=== PATIENT | male | born 1950 | race Caucasian/White ===

== ENCOUNTER 2018-09-16 16:31 | Emergency (ER) | payer MEDICARE, OTHER, SELFPAY ==
[2018-09-16 16:38] VITALS: BP 178/79; PULSE 73; RESP 14; TEMP 36.3; O2SAT 96
--- NOTE | 2018-09-16 17:09 | DI.RAD.S_ITS ---
PROCEDURE: XR WRIST LT MIN 3V INDICATIONS: non traumatic pain, after treatment. TECHNIQUE: 4 views of the wrist were acquired. COMPARISON: None. FINDINGS: Bones: Small 2 mm in diameter ossification noted dorsal to the wrist in the lateral view which may represent an accessory ossicle versus old triquetral injury. No acute fractures or dislocations. No suspicious bony lesions. Scaphoid view: Scaphoid is intact Soft tissues: No suspicious soft tissue calcifications. IMPRESSION: No acute fracture. No acute osseous lesion. If symptoms and/or clinical suspicion for pathology persists, further assessment with repeat radiographs (7-10 days) or advanced imaging (e.g. CT, MRI or bone scan) may be helpful. Dictated by: Elda Bey MD, PhD on 09/16/2018 at 16:26 Approved by: Elda Bey MD, PhD on 09/16/2018 at 16:28
--- NOTE | 2018-09-16 18:05 | ED.EXTPRO ---
HPI - Extremity Problem General Chief complaint: Extremity Problem,Nontraumatic Stated complaint: left wrist pain x4 days Time Seen by Provider: 09/16/18 17:10 Source: patient Mode of arrival: ambulatory Limitations: no limitations History of Present Illness HPI Narrative: Patient is a 67-year-old male who presents with left wrist pain. He does not remember injuring it on but he started noticing swelling. 4 days ago he was seen at the walk-in clinic at that time he had redness and streaking. He was started on Keflex. He says the redness has improved significantly he still has some swelling but overall it is better. He now feels his tendons move whenever he moves his hand. He wanted to make sure was not broken. He denies any fever or chills no numbness or tingling in his fingers. He is able to move fingers and wrist full range of motion. MD Complaint: extremity pain Related Data Home Medications Medication Instructions Recorded Confirmed cephalexin 500 mg PO TID 09/16/18 09/16/18 clobetasol 1 applic TOPICAL DIRECTED 09/16/18 09/16/18 lisinopril 20 mg PO DAILY 09/16/18 Allergies Allergy/AdvReac Type Severity Reaction Status Date / Time No Known Drug Allergies Allergy Verified 09/16/18 16:37 Review of Systems Review of Systems GENERAL: Denies chills,fever HEENT: Denies throat pain RESPIRATORY: Denies dyspnea, cough, wheezing CARDIOVASCULAR: Denies chest pain, palpitations GASTROINTESTINAL: Denies nausea, vomiting MUSCULOSKELETAL: See HPI SKIN: See HPI NEUROLOGIC: Denies weakness, dizziness, headache, numbness 8 point review of systems is negative except for those stated above and HPI [facility] Medical History Healthy adult (Acute) Social History Smoking Status: Former smoker Exam Initial Vital Signs Initial Vital Signs: Vital Signs Temperature 97.3 F L 09/16/18 16:38 Pulse Rate 73 09/16/18 16:38 Respiratory Rate 14 09/16/18 16:38 Blood Pressure 178/79 H 09/16/18 16:38 Pulse Oximetry 96 09/16/18 16:38 GENERAL: Well-appearing, well-nourished and in no acute distress. CARDIOVASCULAR: peripheral pulses in tact, cap refill <2 sec RESPIRATORY: No respiratory distress, speaks in full sentences without difficulty EXTREMITIES: Left wrist 1 area of mild swelling no erythema full range of motion of fingers wrist and elbow neurovascularly intact NEUROLOGICAL: Cranial nerves II through XII grossly intact. Normal gait and speech. SKIN: No erythema no streaking no abscess Course Orders Ordered: ED Orders 09/16/18 17:09 XR wrist LT min 3V Stat Vital Signs - 8 hr 09/16/18 16:38 09/16/18 18:30 Temperature 97.3 F L Pulse Rate 73 68 Respiratory Rate 14 16 Blood Pressure 178/79 H Blood Pressure [Right Arm] 180/82 H Pulse Oximetry 96 99 MDM - Extremity (Nontraumatic) Imaging Data Left wrist: Radiologist's impression: [address] [address] XRay Report Signed Patient: Tanner Abrams CMR#: [id number] : 9Acct:[id number] Age/Sex: 67 / MDate of Service: 09/16/18 Loc: ED Accession Number: [id number] Procedure: XR wrist LT min 3V Ordering Provider: Ulises Thacker D.O. PROCEDURE: XR WRIST LT MIN 3V INDICATIONS: non traumatic pain, after treatment. TECHNIQUE: 4 views of the wrist were acquired. COMPARISON: None. FINDINGS: Bones: Small 2 mm in diameter ossification noted dorsal to the wrist in the lateral view which may represent an accessory ossicle versus old triquetral injury. No acute fractures or dislocations. No suspicious bony lesions. Scaphoid view: Scaphoid is intact Soft tissues: No suspicious soft tissue calcifications. IMPRESSION: No acute fracture. No acute osseous lesion. If symptoms and/or clinical suspicion for pathology persists, further assessment with repeat radiographs (7-10 days) or advanced imaging (e.g. CT, MRI or bone scan) may be helpful. Dictated by: Elda Bey MD, PhD on 09/16/2018 at 16:26 MDM Narrative Medical decision making narrative: Patient overall has had improvement since the start of antibiotics. He shows no sign of sepsis or septic joint. At this time recommend he finished his course of antibiotics and elevated arm. Discharge Plan Departure Patient Disposition: Home Clinical Impression: Cellulitis of arm, left Discharge Date/Time: 09/16/18 18:31 Interventions: ED Discharge Assessment Last Done: 09/16/18 18:31 Instructions: Cellulitis Activity Restrictions/Additional Instructions: *You have been diagnosed with cellulitis *What to do: Elevate arm above heart whenever possible this will help with swelling. X-ray was negative. Continue antibiotics and finished until gone *Continue to take medications as directed *Follow up with your primary care provider in 2-3 days *Return to ER if you should have increasing swelling, redness, inability to move fingers, increasing pain or any new, worsening or concerning symptoms Prescriptions: No Action lisinopril 20 mg tablet 20 mg PO DAILY RF: 0 clobetasol 0.05 % cream 1 applic Topical DIRECTED RF: 0 cephalexin 500 mg capsule 500 mg PO TID RF: 0 Referrals: Sudhir Diaz MD [Primary Care Provider] -
--- NOTE | 2018-09-16 18:20 | ED_ITS ---
HPI - Extremity Problem General Chief complaint: Extremity Problem,Nontraumatic Stated complaint: left wrist pain x4 days Time Seen by Provider: 09/16/18 17:10 Source: patient Mode of arrival: ambulatory Limitations: no limitations History of Present Illness HPI Narrative: Patient is a 67-year-old male who presents with left wrist pain. He does not remember injuring it on but he started noticing swelling. 4 days ago he was seen at the walk-in clinic at that time he had redness and streaking. He was started on Keflex. He says the redness has improved significantly he still has some swelling but overall it is better. He now feels his tendons move whenever he moves his hand. He wanted to make sure was not broken. He denies any fever or chills no numbness or tingling in his fingers. He is able to move fingers and wrist full range of motion. MD Complaint: extremity pain Related Data Home Medications Medication Instructions Recorded Confirmed cephalexin 500 mg PO TID 09/16/18 09/16/18 clobetasol 1 applic TOPICAL DIRECTED 09/16/18 09/16/18 lisinopril 20 mg PO DAILY 09/16/18 Allergies Allergy/AdvReac Type Severity Reaction Status Date / Time No Known Drug Allergies Allergy Verified 09/16/18 16:37 Review of Systems Review of Systems GENERAL: Denies chills,fever HEENT: Denies throat pain RESPIRATORY: Denies dyspnea, cough, wheezing CARDIOVASCULAR: Denies chest pain, palpitations GASTROINTESTINAL: Denies nausea, vomiting MUSCULOSKELETAL: See HPI SKIN: See HPI NEUROLOGIC: Denies weakness, dizziness, headache, numbness 8 point review of systems is negative except for those stated above and HPI [facility] Medical History Healthy adult (Acute) Social History Smoking Status: Former smoker Exam Initial Vital Signs Initial Vital Signs: Vital Signs Temperature 97.3 F L 09/16/18 16:38 Pulse Rate 73 09/16/18 16:38 Respiratory Rate 14 09/16/18 16:38 Blood Pressure 178/79 H 09/16/18 16:38 Pulse Oximetry 96 09/16/18 16:38 GENERAL: Well-appearing, well-nourished and in no acute distress. CARDIOVASCULAR: peripheral pulses in tact, cap refill <2 sec RESPIRATORY: No respiratory distress, speaks in full sentences without difficulty EXTREMITIES: Left wrist 1 area of mild swelling no erythema full range of motion of fingers wrist and elbow neurovascularly intact NEUROLOGICAL: Cranial nerves II through XII grossly intact. Normal gait and speech. SKIN: No erythema no streaking no abscess Course Orders Ordered: ED Orders 09/16/18 17:09 XR wrist LT min 3V Stat Vital Signs - 8 hr 09/16/18 16:38 09/16/18 18:30 Temperature 97.3 F L Pulse Rate 73 68 Respiratory Rate 14 16 Blood Pressure 178/79 H Blood Pressure [Right Arm] 180/82 H Pulse Oximetry 96 99 MDM - Extremity (Nontraumatic) Imaging Data Left wrist: Radiologist's impression: [address] [address] XRay Report Signed Patient: Tanner Abrams CMR#: [id number] : 9Acct:[id number] Age/Sex: 67 / MDate of Service: 09/16/18 Loc: ED Accession Number: [id number] Procedure: XR wrist LT min 3V Ordering Provider: Ulises Thacker D.O. PROCEDURE: XR WRIST LT MIN 3V INDICATIONS: non traumatic pain, after treatment. TECHNIQUE: 4 views of the wrist were acquired. COMPARISON: None. FINDINGS: Bones: Small 2 mm in diameter ossification noted dorsal to the wrist in the lateral view which may represent an accessory ossicle versus old triquetral injury. No acute fractures or dislocations. No suspicious bony lesions. Scaphoid view: Scaphoid is intact Soft tissues: No suspicious soft tissue calcifications. IMPRESSION: No acute fracture. No acute osseous lesion. If symptoms and/or clinical suspicion for pathology persists, further assessment with repeat radiographs (7- 10 days) or advanced imaging (e.g. CT, MRI or bone scan) may be helpful. Dictated by: Elda Bey MD, PhD on 09/16/2018 at 16:26 MDM Narrative Medical decision making narrative: Patient overall has had improvement since the start of antibiotics. He shows no sign of sepsis or septic joint. At this time recommend he finished his course of antibiotics and elevated arm. Discharge Plan Departure Patient Disposition: Home Clinical Impression: Cellulitis of arm, left Discharge Date/Time: 09/16/18 18:31 Interventions: ED Discharge Assessment Last Done: 09/16/18 18:31 Instructions: Cellulitis Activity Restrictions/Additional Instructions: *You have been diagnosed with cellulitis *What to do: Elevate arm above heart whenever possible this will help with swelling. X-ray was negative. Continue antibiotics and finished until gone *Continue to take medications as directed *Follow up with your primary care provider in 2-3 days *Return to ER if you should have increasing swelling, redness, inability to move fingers, increasing pain or any new, worsening or concerning symptoms Prescriptions: No Action lisinopril 20 mg tablet 20 mg PO DAILY RF: 0 clobetasol 0.05 % cream 1 applic Topical DIRECTED RF: 0 cephalexin 500 mg capsule 500 mg PO TID RF: 0 Referrals: Sudhir Diaz MD [Primary Care Provider] -
[2018-09-16 18:30] VITALS: BP 180/82; PULSE 68; RESP 16; O2SAT 99
== END 2018-09-16 18:31 | disposition home or self-care (01) ==
PROVIDERS: Emergency Provider Emergency Medicine; PCP Family Medicine
DX: L03.114 Cellulitis of left upper limb (principal)
CPT/HCPCS: 73110; 99282; 99283

== ENCOUNTER 2019-04-04 16:32 | Emergency (ER) | payer MEDICARE, OTHER, SELFPAY ==
[2019-04-04 16:40] VITALS: PULSE 89; RESP 16; O2SAT 99
[2019-04-04 16:47] VITALS: BP 146/68
--- NOTE | 2019-04-04 16:53 | DI.RAD.S_ITS ---
PROCEDURE: XR CHEST 1V INDICATIONS: chest pain TECHNIQUE: One view of the chest was acquired. COMPARISON: None. FINDINGS: Surgical changes and devices: None. Lungs and pleura: Lungs are clear. No pleural effusions or pneumothorax. Mediastinum: Mediastinal contours appear normal. Heart size is normal. Bones and chest wall: No suspicious bony lesions. Overlying soft tissues appear unremarkable. IMPRESSION: No acute process. Dictated by: Madonna Escalante M.D. on 04/04/2019 at 17:12 Approved by: Madonna Escalante M.D. on 04/04/2019 at 17:12
[2019-04-04 17:36] LABS: Add Manual Diff / Slide Review NO; Basophils Absolute Auto 100 /uL (0-100); Basophils Percent Auto 0.7 % (0-2); Eosinophils Absolute Auto 300 /uL (0-450); Eosinophils Percent Auto 3.5 % (2-4); Hematocrit 38.3 % (41-53); Hemoglobin 12.8 g/dL (13.5-17.5); Lymphocytes Absolute Auto 1000 /uL (1100-4500); Lymphocytes Percent Auto 11.1 % (25-40); Mean Corpuscular HGB Conc 33.5 % (30-36); Mean Corpuscular Hemoglobin 32.6 PG (26-34); Mean Corpuscular Volume 97.4 fL (80-100); Monocytes Absolute Auto 900 /uL (0-900); Monocytes Percent Auto 9.7 % (3-14); Neutrophils Absolute Auto 6800 /uL (1500-7000); Platelet Count 377 X10^3/uL (150-400); Red Blood Cell Count 3.94 X10^6/uL (4.5-5.9); Red Cell Distribution Width 12.9 % (11.6-14.8)
[2019-04-04 17:37] LABS: INR 0.9 (0.9-1.3); Prothrombin Time 10.9 SECONDS (10.1-12.7)
[2019-04-04 17:38] VITALS: BP 137/57; PULSE 69; RESP 12; O2SAT 97
[2019-04-04 17:40] LABS: PTT Partial Thromboplastin Tim 29 SECONDS (26.4-36.2)
--- NOTE | 2019-04-04 17:43 | ED.CHESTPAIN ---
HPI - Chest Pain General Chief Complaint: Chest Pain Stated Complaint: CHEST PAIN Time Seen by Provider: 04/04/19 17:39 Source: patient Mode of arrival: ambulatory Limitations: no limitations History of Present Illness HPI narrative: This is a 68-year-old male comes to the emergency department with complaint of chest pain. Patient states he has had symptoms on off for couple days it is becoming increasingly more frequent. He has noticed sort of more on the left kind of bandlike. In the upper back region. Patient states that he isn't having any current shortness of breath he did become quite diaphoretic while he was here in the department felt a bit lightheaded. He has been nauseated with these episodes. He states he has been diaphoretic with the other episodes. He states he has noticed it when his feet backing doing some exertional activity but it does not always have to be with exertion he denies any abdominal. He has not had any syncope. He denies any GI or urinary symptoms other than nausea. He has not had any vomiting he does take blood pressure medication as well as a statin. He has been taking lot of Tylenol and ibuprofen regularly for some back issues. He does have a known aneurysm which he states had a recent ultrasound which shows it was stable. Related Data Home Medications Medication Instructions Recorded Confirmed clobetasol 1 applic TOPICAL DIRECTED 09/16/18 09/16/18 lisinopril 20 mg PO DAILY 09/16/18 04/04/19 atorvastatin 40 mg PO DAILY 04/04/19 04/04/19 hydrochlorothiazide 12.5 mg PO DAILY 04/04/19 04/04/19 Allergies Allergy/AdvReac Type Severity Reaction Status Date / Time No Known Drug Allergies Allergy Verified 09/16/18 16:37 Review of Systems Review of Systems ROS Unobtainable: All systems reviewed & are unremarkable except as noted in HPI and below Constitutional Denies chills, Reports fatigue, Denies fever(s), Denies lethargy and Denies weakness Cardiovascular Reports chest pain, Reports chest pain at rest, Reports chest pain with activity, Reports diaphoresis (just today), Denies syncope, Reports rapid heart rate, Denies edema, Denies irregular heart rhythm, Denies leg edema, Reports dyspnea and Denies dyspnea on exertion Respiratory Denies change in phlegm color, Denies chest congestion, Reports dyspnea and Denies dyspnea on exertion Gastrointestinal Gastrointestinal: Denies abdominal pain, Denies melena, Denies hematochezia, Reports nausea and Denies vomiting Genitourinary Denies hematuria, Denies flank pain and Denies urinary urgency Musculoskeletal Denies back pain Neurologic Denies syncope and Denies weakness Endocrine Reports fatigue PFS Medical History (Updated 04/04/19 @ 17:53 by Angelia Lopez DO) Healthy adult (Acute) Aortic aneurysm, abdominal (Chronic) Dyslipidemia (Chronic) Hypertension (Chronic) Social History Smoking Status: Former smoker Social History Smoking Status: Former smoker Exam Narrative Exam Narrative: GENERAL: Alert and oriented x three, well-nourished male in mild distress. Patient is diaphoretic to touch. HEENT: Head normocephalic, atraumatic, EOMI, pupils reactive, face symmetric, moist mucous membranes NECK: Supple, full range of motion CARDIOVASCULAR: Regular rate and rhythm without murmurs, rubs or gallops. RESPIRATORY: Breath sounds equal bilaterally, no wheezes rales or rhonchi. ABDOMEN: Soft, nontender. Normoactive bowel sounds all 4 quadrants. No guarding or rebound, rigidity, no mass, no bruit or pulsatile mass. : No CVA tenderness EXTREMITIES: Normal range of motion, no clubbing or edema. 2+ pulses bilateral lower extremities. Neurovascularly intact NEUROLOGICAL: Cranial nerves II through XII grossly intact. Moving all extremities SKIN: Warm, dry, no petechiae, no rashes or lesions. Initial Vital Signs Initial Vital Signs: Vital Signs Pulse Rate 89 04/04/19 16:40 Respiratory Rate 16 04/04/19 16:40 Pulse Oximetry 99 04/04/19 16:40 Course Orders Ordered: ED Orders 04/04/19 16:45 EKG-12 Lead Stat 04/04/19 16:53 XR chest 1V Stat 04/04/19 17:17 Complete Blood Count AUTO DIFF Stat Comprehensive Metabolic Panel Stat Lipase Stat Partial Thromboplastin Time Stat Prothrombin Time INR Stat Troponin & CK Cardiac Panel Stat 04/04/19 17:35 Partial Thromboplastin Time Stat 04/04/19 17:45 PTT [Partial Thromboplastin Time] Q6H Discontinued Medications Aspirin (Aspirin Chew) 324 mg PO NOW ONE Stop: 04/04/19 17:41 Last Admin: 04/04/19 17:45 Dose: 324 mg Fentanyl (Sublimaze) 50 mcg IV NOW ONE Stop: 04/04/19 17:52 Last Admin: 04/04/19 17:52 Dose: 50 mcg Heparin Sodium (Porcine) (Heparin) 5,000 unit IV NOW ONE Stop: 04/04/19 17:43 Last Admin: 04/04/19 17:45 Dose: 5,000 unit Heparin Sodium/Dextrose (Heparin Drip) 25,000 unit in 500 mls @ 20.902 mls/hr IV CONT RAUDEL; Protocol Last Titration: 04/04/19 17:55 Dose: 0 units/kg/hr, 0 mls/hr Admin: 04/04/19 17:45 Dose: 12 units/kg/hr, 20.902 mls/hr Vital Signs - 8 hr 04/04/19 16:40 04/04/19 16:47 04/04/19 17:38 Pulse Rate 89 69 Respiratory Rate 16 12 Blood Pressure [Right Arm] 146/68 H 137/57 L Pulse Oximetry 99 97 MDM - Chest Pain Lab Data Attestation: I reviewed the patient's lab results. Result diagrams: 04/04/19 17:17 04/04/19 17:17 Lab Results 04/04/19 04/04/19 04/04/19 Range/Units 17:17 17:17 17:17 WBC 9.0 (4.5-11.0) X10^3/uL RBC 3.94 L (4.5-5.9) X10^6/uL Hgb 12.8 L (13.5-17.5) g/dL Hct 38.3 L (41-53) % MCV 97.4 (80-100) fL MCH 32.6 (26-34) PG MCHC 33.5 (30-36) % RDW 12.9 (11.6-14.8) % Plt Count 377 (150-400) X10^3/uL Neut % (Auto) 75.0 (50-75) % Lymph % (Auto) 11.1 L (25-40) % Overton % (Auto) 9.7 (3-14) % Eos % (Auto) 3.5 (2-4) % Baso % (Auto) 0.7 (0-2) % Neut # (Auto) 6800 (7120-2971) /uL Lymph # (Auto) 1000 L (6198-1284) /uL Overton # (Auto) 900 (0-900) /uL Eos # (Auto) 300 (0-450) /uL Baso # (Auto) 100 (0-100) /uL PT 10.9 (10.1-12.7) SECONDS INR 0.9 (0.9-1.3) APTT 29 (26.4-36.2) SECONDS Sodium 137 (137-145) mmol/L Potassium 4.0 (3.4-5.1) mmol/L Chloride 98 (98-107) mmol/L Carbon Dioxide 29 (22-32) mmol/L BUN 29 H (9-20) mg/dL Creatinine 0.80 (0.66-1.25) mg/dL Estimated GFR > 60.0 (>60) mL/min BUN/Creatinine Ratio 36.3 H (6-22) Glucose 110 (80-110) mg/dL Calcium 9.5 (8.4-10.2) mg/dL Total Bilirubin 0.9 (0.2-1.3) mg/dL AST 30 (17-59) IU/L ALT 25 (21-72) IU/L Alkaline Phosphatase 89 (38-126) U/L Total Creatine Kinase 233 H (55-170) U/L CK-MB (CK-2) 4.51 H (<2.37) ng/mL CK-MB (CK-2) Rel Index 1.9 (1.5-5.0) % Troponin I < 0.012 (0.01-0.034) ng/mL Total Protein 7.7 (6.3-8.2) g/dL Albumin 4.2 (3.5-5.0) g/dL Globulin 3.5 (1.7-4.1) g/dL Albumin/Globulin Ratio 1.2 (1.0-2.8) Lipase 25 (23-300) U/L 04/04/19 Range/Units 17:35 WBC (4.5-11.0) X10^3/uL RBC (4.5-5.9) X10^6/uL Hgb (13.5-17.5) g/dL Hct (41-53) % MCV (80-100) fL MCH (26-34) PG MCHC (30-36) % RDW (11.6-14.8) % Plt Count (150-400) X10^3/uL Neut % (Auto) (50-75) % Lymph % (Auto) (25-40) % Overton % (Auto) (3-14) % Eos % (Auto) (2-4) % Baso % (Auto) (0-2) % Neut # (Auto) (7977-7209) /uL Lymph # (Auto) (0192-2782) /uL Overton # (Auto) (0-900) /uL Eos # (Auto) (0-450) /uL Baso # (Auto) (0-100) /uL PT (10.1-12.7) SECONDS INR (0.9-1.3) APTT 27 D (26.4-36.2) SECONDS Sodium (137-145) mmol/L Potassium (3.4-5.1) mmol/L Chloride (98-107) mmol/L Carbon Dioxide (22-32) mmol/L BUN (9-20) mg/dL Creatinine (0.66-1.25) mg/dL Estimated GFR (>60) mL/min BUN/Creatinine Ratio (6-22) Glucose (80-110) mg/dL Calcium (8.4-10.2) mg/dL Total Bilirubin (0.2-1.3) mg/dL AST (17-59) IU/L ALT (21-72) IU/L Alkaline Phosphatase (38-126) U/L Total Creatine Kinase (55-170) U/L CK-MB (CK-2) (<2.37) ng/mL CK-MB (CK-2) Rel Index (1.5-5.0) % Troponin I (0.01-0.034) ng/mL Total Protein (6.3-8.2) g/dL Albumin (3.5-5.0) g/dL Globulin (1.7-4.1) g/dL Albumin/Globulin Ratio (1.0-2.8) Lipase (23-300) U/L Imaging Data Chest x-ray: My impression: No acute process ECG Data Attestation: I personally reviewed and interpreted this ECG as follows: Interpretation: EKG 1. Shows Q-waves in [address] elevation or depression appreciated. Rate of 65 P are 156 QTC is 412 and QRS is 92 EKG 2. Shows Q-waves in 3 and AVF. Does appear to have [address]-elevation in V2 3 and 4. Possibly in 3. Depression in aVL. No other acute changes appreciated. Sinus bradycardia. Rate of 55 P are 140, QRS of 93 QTC of 422. MDM Narrative Medical decision making narrative: Patient does appear to have ST changes between EKG 1 and 2. Activated as ST elevated [place]. 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 Patient does not have any abdominal pain, pulsatile mass or changes to pulses in lower extremities. Patient was given aspirin 324 mg and 5000 unit heparin bolus. Because of his hypotension while he was here in the department he did not receive any nitrates. Did give fentanyl as he continued to have chest pain. Spoke with Dr. Wilson at [facility] who accepts for transfer. EKGs were faxed head of patient. Labs were not finalized prior to tranfers. Critical Care Time Critical Care Time: Yes (25) Total Critical Care Time: 25 Attestation: The high probability of a clinically significant, sudden or life threatening deterioration of the [cardiac] system(s) required my full and direct attention, intervention and personal management. The aggregate critical care time was [25] minutes. This time is in addition to time spent performing reported procedures but includes the following: [x] Data Review and interpretation [x] Patient assessment and monitoring of vital signs [x] Documentation [] Medication orders and management Discharge Plan Departure Patient Disposition: [facility] Clinical Impression: ST elevation (STEMI) myocardial infarction Discharge Date/Time: 04/04/19 18:00 Interventions: ED Discharge Assessment Last Done: 04/04/19 18:00 Prescriptions: No Action lisinopril 20 mg tablet 20 mg PO DAILY RF: 0 clobetasol 0.05 % cream 1 applic Topical DIRECTED RF: 0 atorvastatin 40 mg tablet 40 mg PO DAILY RF: 0 hydrochlorothiazide 12.5 mg tablet 12.5 mg PO DAILY RF: 0 Referrals: Sudhir Diaz MD [Primary Care Provider] -
[2019-04-04 17:44] LABS: Alanine Aminotransferase 25 IU/L (21-72); Albumin 4.2 g/dL (3.5-5.0); Albumin Globulin Ratio 1.2 (1.0-2.8); Alkaline Phosphatase 89 U/L (38-126); Aspartate Aminotransferase 30 IU/L (17-59); BUN Creatinine Ratio 36.3 (6-22); Bilirubin Total 0.9 mg/dL (0.2-1.3); Blood Urea Nitrogen 29 mg/dL (9-20); Calcium 9.5 mg/dL (8.4-10.2); Carbon Dioxide 29 mmol/L (22-32); Chloride 98 mmol/L (98-107); Creatine Kinase 233 U/L (55-170); Estimated Glomerular Filt Rate > 60.0 mL/min (>60); Globulin 3.5 g/dL (1.7-4.1); Glucose 110 mg/dL (80-110); HEMOLYSIS < 15 (0-50); Lipase 25 U/L (23-300); Sodium 137 mmol/L (137-145); Total Protein 7.7 g/dL (6.3-8.2)
[2019-04-04] MEDS: HEPARIN DRIP 25,000 UNIT/500 ML IV.SOLN 20.902 UNIT IV (17:45)
[2019-04-04] MEDS: HEPARIN 5,000 UNIT/ML VIAL 5000 UNIT IV (17:45)
[2019-04-04] MEDS: ASPIRIN 81 MG TAB 324 MG PO (17:45)
--- NOTE | 2019-04-04 17:46 | ED_ITS ---
HPI - Chest Pain General Chief Complaint: Chest Pain Stated Complaint: CHEST PAIN Time Seen by Provider: 04/04/19 17:39 Source: patient Mode of arrival: ambulatory Limitations: no limitations History of Present Illness HPI narrative: This is a 68-year-old male comes to the emergency department with complaint of chest pain. Patient states he has had symptoms on off for couple days it is becoming increasingly more frequent. He has noticed sort of more on the left kind of bandlike. In the upper back region. Patient states that he isn't having any current shortness of breath he did become quite diaphoretic whi le he was here in the department felt a bit lightheaded. He has been nauseated with these episodes. He states he has been diaphoretic with the other episodes. He states he has noticed it when his feet backing doing some exertional activity but it does not always have to be with exertion he denies any abdominal. He has not had any syncope. He denies any GI or urinary symptoms other than nausea. He has not had any vomiting he does take blood pressure medication as well as a statin. He has been taking lot of Tylenol and ibuprofen regularly for some back issues. He does have a known aneurysm which he states had a recent ultrasound which shows it was stable. Related Data Home Medications Medication Instructions Recorded Confirmed clobetasol 1 applic TOPICAL DIRECTED 09/16/18 09/16/18 lisinopril 20 mg PO DAILY 09/16/18 04/04/19 atorvastatin 40 mg PO DAILY 04/04/19 04/04/19 hydrochlorothiazide 12.5 mg PO DAILY 04/04/19 04/04/19 Allergies Allergy/AdvReac Type Severity Reaction Status Date / Time No Known Drug Allergies Allergy Verified 09/16/18 16:37 Review of Systems Review of Systems ROS Unobtainable: All systems reviewed & are unremarkable except as noted in HPI and below Constitutional Denies chills, Reports fatigue, Denies fever(s), Denies lethargy and Denies weakness Cardiovascular Reports chest pain, Reports chest pain at rest, Reports chest pain with activity, Reports diaphoresis (just today), Denies syncope, Reports rapid heart rate, Denies edema, Denies irregular heart rhythm, Denies leg edema, Reports dyspnea and Denies dyspnea on exertion Respiratory Denies change in phlegm color, Denies chest congestion, Reports dyspnea and Denies dyspnea on exertion Gastrointestinal Gastrointestinal: Denies abdominal pain, Denies melena, Denies hematochezia, Reports nausea and Denies vomiting Genitourinary Denies hematuria, Denies flank pain and Denies urinary urgency Musculoskeletal Denies back pain Neurologic Denies syncope and Denies weakness Endocrine Reports fatigue [facility] Medical History (Updated 04/04/19 @ 17:53 by Angelia Lopez DO) Healthy adult (Acute) Aortic aneurysm, abdominal (Chronic) Dyslipidemia (Chronic) Hypertension (Chronic) Social History Smoking Status: Former smoker Social History Smoking Status: Former smoker Exam Narrative Exam Narrative: GENERAL: Alert and oriented x three, well-nourished male in mild distress. Patient is diaphoretic to touch. HEENT: Head normocephalic, atraumatic, EOMI, pupils reactive, face symmetric, moist mucous membranes NECK: Supple, full range of motion CARDIOVASCULAR: Regular rate and rhythm without murmurs, rubs or gallops. RESPIRATORY: Breath sounds equal bilaterally, no wheezes rales or rhonchi. ABDOMEN: Soft, nontender. Normoactive bowel sounds all 4 quadrants. No guard ing or rebound, rigidity, no mass, no bruit or pulsatile mass. : No CVA tenderness EXTREMITIES: Normal range of motion, no clubbing or edema. 2+ pulses bilateral lower extremities. Neurovascularly intact NEUROLOGICAL: Cranial nerves II through XII grossly intact. Moving all extremities SKIN: Warm, dry, no petechiae, no rashes or lesions. Initial Vital Signs Initial Vital Signs: Vital Signs Pulse Rate 89 04/04/19 16:40 Respiratory Rate 16 04/04/19 16:40 Pulse Oximetry 99 04/04/19 16:40 Course Orders Ordered: ED Orders 04/04/19 16:45 EKG-12 Lead Stat 04/04/19 16:53 XR chest 1V Stat 04/04/19 17:17 Complete Blood Count AUTO DIFF Stat Comprehensive Metabolic Panel Stat Lipase Stat Partial Thromboplastin Time Stat Prothrombin Time INR Stat Troponin & CK Cardiac Panel Stat 04/04/19 17:35 Partial Thromboplastin Time Stat 04/04/19 17:45 PTT [Partial Thromboplastin Time] Q6H Discontinued Medications Aspirin (Aspirin Chew) 324 mg PO NOW ONE Stop: 04/04/19 17:41 Last Admin: 04/04/19 17:45 Dose: 324 mg Fentanyl (Sublimaze) 50 mcg IV NOW ONE Stop: 04/04/19 17:52 Last Admin: 04/04/19 17:52 Dose: 50 mcg Heparin Sodium (Porcine) (Heparin) 5,000 unit IV NOW ONE Stop: 04/04/19 17:43 Last Admin: 04/04/19 17:45 Dose: 5,000 unit Heparin Sodium/Dextrose (Heparin Drip) 25,000 unit in 500 mls @ 20.902 mls/hr IV CONT RAUDEL; Protocol Last Titration: 04/04/19 17:55 Dose: 0 units/kg/hr, 0 mls/hr Admin: 04/04/19 17:45 Dose: 12 units/kg/hr, 20.902 mls/hr Vital Signs - 8 hr 04/04/19 16:40 04/04/19 16:47 04/04/19 17:38 Pulse Rate 89 69 Respiratory Rate 16 12 Blood Pressure [Right Arm] 146/68 H 137/57 L Pulse Oximetry 99 97 MDM - Chest Pain Lab Data Attestation: I reviewed the patient's lab results. Result diagrams: 04/04/19 17:17 04/04/19 17:17 Lab Results 04/04/19 04/04/19 04/04/19 Range/Units 17:17 17:17 17:17 WBC 9.0 (4.5-11.0) X10^3/uL RBC 3.94 L (4.5-5.9) X10^6/uL Hgb 12.8 L (13.5-17.5) g/dL Hct 38.3 L (41-53) % MCV 97.4 (80-100) fL MCH 32.6 (26-34) PG MCHC 33.5 (30-36) % RDW 12.9 (11.6-14.8) % Plt Count 377 (150-400) X10^3/uL Neut % (Auto) 75.0 (50-75) % Lymph % (Auto) 11.1 L (25-40) % [place] % (Auto) 9.7 (3-14) % Eos % (Auto) 3.5 (2-4) % Baso % (Auto) 0.7 (0-2) % Neut # (Auto) 6800 (5690-1201) /uL Lymph # (Auto) 1000 L (5808-1435) /uL [place] # (Auto) 900 (0-900) /uL Eos # (Auto) 300 (0-450) /uL Baso # (Auto) 100 (0-100) /uL PT 10.9 (10.1-12.7) SECONDS INR 0.9 (0.9-1.3) APTT 29 (26.4-36.2) SECONDS Sodium 137 (137-145) mmol/L Potassium 4.0 (3.4-5.1) mmol/L Chloride 98 (98-107) mmol/L Carbon Dioxide 29 (22-32) mmol/L BUN 29 H (9-20) mg/dL Creatinine 0.80 (0.66-1.25) mg/dL Estimated GFR > 60.0 (>60) mL/min BUN/Creatinine Ratio 36.3 H (6-22) Glucose 110 (80-110) mg/dL Calcium 9.5 (8.4-10.2) mg/dL Total Bilirubin 0.9 (0.2-1.3) mg/dL AST 30 (17-59) IU/L ALT 25 (21-72) IU/L Alkaline Phosphatase 89 (38-126) U/L Total Creatine Kinase 233 H (55-170) U/L CK-MB (CK-2) 4.51 H (<2.37) ng/mL CK-MB (CK-2) Rel Index 1.9 (1.5-5.0) % Troponin I < 0.012 (0.01-0.034) ng/mL Total Protein 7.7 (6.3-8.2) g/dL Albumin 4.2 (3.5-5.0) g/dL Globulin 3.5 (1.7-4.1) g/dL Albumin/Globulin Ratio 1.2 (1.0-2.8) Lipase 25 (23-300) U/L 04/04/19 Range/Units 17:35 WBC (4.5-11.0) X10^3/uL RBC (4.5-5.9) X10^6/uL Hgb (13.5-17.5) g/dL Hct (41-53) % MCV (80-100) fL MCH (26-34) PG MCHC (30-36) % RDW (11.6-14.8) % Plt Count (150-400) X10^3/uL Neut % (Auto) (50-75) % Lymph % (Auto) (25-40) % [place] % (Auto) (3-14) % Eos % (Auto) (2-4) % Baso % (Auto) (0-2) % Neut # (Auto) (3010-4992) /uL Lymph # (Auto) (1045-5564) /uL [place] # (Auto) (0-900) /uL Eos # (Auto) (0-450) /uL Baso # (Auto) (0-100) /uL PT (10.1-12.7) SECONDS INR (0.9-1.3) APTT 27 D (26.4-36.2) SECONDS Sodium (137-145) mmol/L Potassium (3.4-5.1) mmol/L Chloride (98-107) mmol/L Carbon Dioxide (22-32) mmol/L BUN (9-20) mg/dL Creatinine (0.66-1.25) mg/dL Estimated GFR (>60) mL/min BUN/Creatinine Ratio (6-22) Glucose (80-110) mg/dL Calcium (8.4-10.2) mg/dL Total Bilirubin (0.2-1.3) mg/dL AST (17-59) IU/L ALT (21-72) IU/L Alkaline Phosphatase (38-126) U/L Total Creatine Kinase (55-170) U/L CK-MB (CK-2) (<2.37) ng/mL CK-MB (CK-2) Rel Index (1.5-5.0) % Troponin I (0.01-0.034) ng/mL Total Protein (6.3-8.2) g/dL Albumin (3.5-5.0) g/dL Globulin (1.7-4.1) g/dL Albumin/Globulin Ratio (1.0-2.8) Lipase (23-300) U/L Imaging Data Chest x-ray: My impression: No acute process ECG Data Attestation: I personally reviewed and interpreted this ECG as follows: Interpretation: EKG 1. Shows Q-waves in [address] elevation or depression appreciated. Rate of 65 P are 156 QTC is 412 and QRS is 92 EKG 2. Shows Q-waves in 3 and AVF. Does appear to have [address]-elevation in V2 3 and 4. Possibly in 3. Depression in aVL. No other acute changes appreciated. Sinus bradycardia. Rate of 55 P are 140, QRS of 93 QTC of 422. MDM Narrative Medical decision making narrative: Patient does appear to have ST changes between EKG 1 and 2. Activated as ST elevated HI. 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 Patient does not have any abdominal pain, pulsatile mass or changes to pulses in lower extremities. Patient was given aspirin 324 mg and 5000 unit heparin bolus. Because of his hypotension while he was here in the department he did not receive any nitrates. Did give fentanyl as he continued to have chest pain. Spoke with Dr. Wilsno at [facility] who accepts for transfer. EKGs were faxed head of patient. L abs were not finalized prior to tranfers. Critical Care Time Critical Care Time: Yes (25) Total Critical Care Time: 25 Attestation: The high probability of a clinically significant, sudden or life threatening deterioration of the [cardiac] system(s) required my full and direct attention, intervention and personal management. The aggregate critical care time was [25] minutes. This time is in addition to time spent performing reported procedures but includes the following: [x] Data Review and interpretation [x] Patient assessment and monitoring of vital signs [x] Documentation [] Medication orders and management Discharge Plan Departure Patient Disposition: [facility] Clinical Impression: ST elevation (STEMI) myocardial infarction Discharge Date/Time: 04/04/19 18:00 Interventions: ED Discharge Assessment Last Done: 04/04/19 18:00 Prescriptions: No Action lisinopril 20 mg tablet 20 mg PO DAILY RF: 0 clobetasol 0.05 % cream 1 applic Topical DIRECTED RF: 0 atorvastatin 40 mg tablet 40 mg PO DAILY RF: 0 hydrochlorothiazide 12.5 mg tablet 12.5 mg PO DAILY RF: 0 Referrals: Sudhir Diaz MD [Primary Care Provider] -
[2019-04-04] MEDS: fentaNYL 100 MCG/2 ML INJ 50 MCG IV (17:52)
[2019-04-04 17:53] LABS: PTT Partial Thromboplastin Tim 27 SECONDS (26.4-36.2)
[2019-04-04 17:54] LABS: Troponin I < 0.012 ng/mL (0.01-0.034)
[2019-04-04 17:59] LABS: CKMB % Relative Index 1.9 % (1.5-5.0); Creatine Kinase MB 4.51 ng/mL (<2.37)
--- NOTE | 2019-04-04 18:14 | PC.NURSE ---
Called pt's son at Pt's request ([place] [phone]) and left message, called dtr Rae ([phone]) and spoke w/ her. Updated on pt transfer and condition. She will go to [facility] [place].
== END 2019-04-04 18:00 | disposition short-term general hospital (02) ==
PROVIDERS: Emergency Provider Emergency Medicine; PCP Family Medicine
DX: I21.3 ST elevation (STEMI) myocardial infarction of unspecified site (principal)
CPT/HCPCS: 36591; 71045; 80053; 82550; 82553; 83690; 84484; 85025; 85610; 85730; 93005; 93010; 93041; 96374; 96375; 99284; 99291; 99292; J1644; J3010

== ENCOUNTER 2022-09-27 12:48 | Emergency (ER) | payer MEDICARE, OTHER, SELFPAY ==
[2022-09-27] VITALS (35 sets, daily range): BP systolic 84–216; BP diastolic 51–102; PULSE 62–103; RESP 13–35; TEMP 36.2; O2SAT 92–99; BMI 28.4
--- NOTE | 2022-09-27 13:03 | DI.RAD.S_ITS ---
PROCEDURE: XR CHEST 1V INDICATIONS: chest pain TECHNIQUE: One view of the chest was acquired. COMPARISON: [facility], CT, CT ANGIO CHEST PE, 04/04/2019, 20:37. [facility], CR, XR CHEST 1V, 04/04/2019, 17:02. [facility], CR, XR CHEST 1 VIEW, 04/04/2019, 18:53. FINDINGS: Surgical changes and devices: None. Lungs and pleura: Mild generalized interstitial prominence can be seen. No pleural effusions or pneumothorax. Mediastinum: Mediastinal contours appear normal. Heart size is normal. Atherosclerotic calcification of the aortic arch is noted. Bones and chest wall: No suspicious bony lesions. Overlying soft tissues appear unremarkable. IMPRESSION: Interstitial prominence is seen throughout. The interstitial prominence is nonspecific, yet may be related to pulmonary edema. Please also consider atypical infection. Dictated by: Ayo Arshad M.D. on 09/27/2022 at 12:58 Approved by: Ayo Arshad M.D. on 09/27/2022 at 12:59
[2022-09-27 13:52] LABS: Add Manual Diff / Slide Review NO; Basophils Absolute Auto 100 /uL (0-100); Basophils Percent Auto 0.7 % (0-2); Eosinophils Absolute Auto 100 /uL (0-450); Eosinophils Percent Auto 0.9 % (2-4); Hematocrit 43.1 % (41-53); Hemoglobin 14.7 g/dL (13.5-17.5); Lymphocytes Absolute Auto 900 /uL (1100-4500); Lymphocytes Percent Auto 9.8 % (25-40); Mean Corpuscular HGB Conc 34.2 % (30-36); Mean Corpuscular Hemoglobin 32.8 PG (26-34); Mean Corpuscular Volume 95.8 fL (80-100); Monocytes Absolute Auto 800 /uL (0-900); Monocytes Percent Auto 9.3 % (3-14); Neutrophils Absolute Auto 7000 /uL (1500-7000); Neutrophils Percent Auto 79.3 % (50-75); Platelet Count 314 X10^3/uL (150-400); White Blood Cell Count 8.9 X10^3/uL (4.5-11.0)
[2022-09-27 13:57] LABS: Prothrombin Time 10.9 SECONDS (10.1-12.7)
[2022-09-27 13:59] LABS: PTT Partial Thromboplastin Tim 29 SECONDS (26-36)
[2022-09-27 14:02] LABS: Alanine Aminotransferase 33 IU/L (<50); Albumin 4.3 g/dL (3.5-5.0); Alkaline Phosphatase 108 U/L (38-126); Aspartate Aminotransferase 67 IU/L (17-59); BUN Creatinine Ratio 18.9 (6-22); Bilirubin Total 0.9 mg/dL (0.2-1.3); Blood Urea Nitrogen 14 mg/dL (9-20); Calcium 9.1 mg/dL (8.4-10.2); Carbon Dioxide 27 mmol/L (22-32); Chloride 98 mmol/L (98-107); Estimated Glomerular Filt Rate > 60 mL/min (>60); Globulin 4.1 g/dL (1.7-4.1); Glucose 102 mg/dL (80-110); HEMOLYSIS < 15 (0-50); Lipase 16 U/L (23-300); Magnesium 1.8 mg/dL (1.6-2.3); Potassium 3.9 mmol/L (3.4-5.1); Sodium 135 mmol/L (137-145); Total Protein 8.4 g/dL (6.3-8.2)
--- NOTE | 2022-09-27 14:20 | ED.CHESTPAIN ---
HPI - Chest Pain General Chief Complaint: Chest Pain Stated Complaint: chest pain getting worse across chest Time Seen by Provider: 09/27/22 14:19 Source: patient Mode of arrival: Ambulatory Limitations: no limitations History of Present Illness HPI narrative: 71-year-old gentleman with history of prior chest pain, concern for STEMI transfer to [facility] with troponins all unremarkabl, hypertension hyperlipidemia presents with chest pain. Related Data Home Medications Medication Instructions Recorded Confirmed clobetasol 0.05 % topical cream 1 applic topical DIRECTED 09/16/18 09/16/18 lisinopril 20 mg tablet 20 mg PO DAILY 09/16/18 04/04/19 atorvastatin 40 mg tablet 40 mg PO DAILY 04/04/19 04/04/19 hydrochlorothiazide 12.5 mg tablet 12.5 mg PO DAILY 04/04/19 04/04/19 Allergies Allergy/AdvReac Type Severity Reaction Status Date / Time No Known Drug Allergies Allergy Verified 09/27/22 13:03 Review of Systems Review of Systems Narrative: Remainder of complete review of systems is otherwise unremarkable except for that included in the HPI. Patient History Medical History Aortic aneurysm, abdominal Dyslipidemia Healthy adult Hypertension Social History Smoking Status: Former smoker Smoking Status: Former smoker alcohol intake frequency: 3 or more drinks per day Substance Use Type: does not use Exam Initial Vital Signs Initial Vital Signs: Vital Signs Temperature 97.2 F L 09/27/22 13:00 Pulse Rate 86 09/27/22 13:00 Respiratory Rate 15 09/27/22 13:00 Blood Pressure 216/102 H 09/27/22 13:00 Pulse Oximetry 96 09/27/22 13:00 Oxygen Delivery Method 09/27/22 13:00 General: Healthy appearing, in no acute distress. Able to give a complete and coherent history. Well-nourished well-developed HEENT: Moist mucous membranes, normal sclera with reactive pupils, Neck: No JVD, supple Respiratory: Lungs are clear to auscultation, no wheezing no rales no rhonchi. Full and symmetrical air movement Cardiac: Regular rate and rhythm no murmurs no bruits Abdomen: Soft, nontender, good bowel tones, no flank pain Skin: Warm and dry, no rashes Neurologic: Grossly neurologically intact with no obvious asymmetries or abnormalities Extremities: No trauma, well perfused Psych: Cooperative, appropriate insight and affect Course Orders Ordered: Discontinued Medications Aspirin (Aspirin 81 Mg Chew Tab) 324 mg PO NOW ONE Stop: 09/27/22 14:23 Last Admin: 09/27/22 14:59 Dose: Not Given Documented By: ARTEM Heparin Sodium (Porcine) (Heparin 5,000 Unit/Ml Vial) 5,000 unit IV NOW ONE Stop: 09/27/22 14:23 Last Admin: 09/27/22 14:59 Dose: 5,000 unit Documented By: ARTEM Nitroglycerin (Nitroglycerin) 50 mg in 250 mls @ 1.5 mls/hr IV TITRATE RAUDEL; Protocol Last Titration: 09/27/22 19:48 Dose: 0 mcg/min, 0 mls/hr Documented By: Titration: 09/27/22 18:12 Dose: 10 mcg/min, 3 mls/hr Documented By: Admin: 09/27/22 17:40 Dose: 5 mcg/min, 1.5 mls/hr Documented By: ARTEM Heparin Sodium/Dextrose (Heparin Drip) 25,000 unit in 500 mls @ 21.555 mls/hr IV CONT RAUDEL; Protocol Last Titration: 09/27/22 19:48 Dose: 0 units/kg/hr, 0 mls/hr Documented By: Admin: 09/27/22 15:00 Dose: 12 units/kg/hr, 21.555 mls/hr Documented By: ARTEM Sodium Chloride (Normal Saline 0.9%) 1,000 mls @ 1,000 mls/hr IV BOLUS ONE Stop: 09/27/22 16:10 Last Infusion: 09/27/22 17:06 Dose: 0 mls/hr Documented By: Admin: 09/27/22 15:27 Dose: 1,000 mls/hr Documented By: ARTEM Nitroglycerin (Nitroglycerin 0.4 Mg Sl Tab) 0.4 mg SL [id number] PRN PRN Reason: Chest Pain Last Admin: 09/27/22 17:21 Dose: 0.4 mg Documented By: Admin: 09/27/22 16:55 Dose: 0.4 mg Documented By: Admin: 09/27/22 14:58 Dose: 0.4 mg Documented By: ARTEM Nitroglycerin (Nitroglycerin Oint 1 Inch/Gm Oint...G.) 0.5 inch TOP NOW ONE Stop: 09/27/22 15:55 Last Admin: 09/27/22 16:00 Dose: 0.5 inch Documented By: ARTEM Vital Signs Vital signs: Vital Signs - 8 hr 09/27/22 13:00 09/27/22 14:27 09/27/22 14:28 Temperature 97.2 F L Pulse Rate 86 81 Respiratory Rate 15 Blood Pressure 216/102 H 132/71 Pulse Oximetry 96 97 Oxygen Delivery Method Room Air 09/27/22 14:28 09/27/22 14:30 09/27/22 14:58 Temperature Pulse Rate 71 68 82 Respiratory Rate 21 Blood Pressure 161/80 H Pulse Oximetry 98 99 Oxygen Delivery Method 09/27/22 14:58 09/27/22 14:58 09/27/22 15:00 Temperature Pulse Rate 80 Respiratory Rate 20 Blood Pressure 161/80 H 144/71 H Pulse Oximetry 97 Oxygen Delivery Method 09/27/22 15:00 09/27/22 15:07 09/27/22 15:07 Temperature Pulse Rate 65 71 Respiratory Rate 17 18 Blood Pressure 84/52 L Pulse Oximetry 97 96 Oxygen Delivery Method 09/27/22 15:09 09/27/22 15:09 09/27/22 15:10 Temperature Pulse Rate 70 Respiratory Rate 25 H Blood Pressure 85/51 L 97/54 L Pulse Oximetry 94 Oxygen Delivery Method 09/27/22 15:10 09/27/22 15:18 09/27/22 15:18 Temperature Pulse Rate 67 63 Respiratory Rate 35 H 17 Blood Pressure 100/57 L Pulse Oximetry 96 92 Oxygen Delivery Method 09/27/22 16:00 09/27/22 16:55 09/27/22 17:21 Temperature Pulse Rate 72 77 77 Respiratory Rate Blood Pressure 180/81 H 180/77 H 155/88 H Pulse Oximetry Oxygen Delivery Method 09/27/22 17:40 Temperature Pulse Rate 90 Respiratory Rate Blood Pressure 149/74 H Pulse Oximetry Oxygen Delivery Method MDM - Chest Pain Lab Data Result diagrams: 09/27/22 13:20 09/27/22 13:20 Labs: Lab Results 09/27/22 09/27/2209/27/22 Range/Units 13:20 13:20 13:20 WBC 8.9 (4.5-11.0) X10^3/uL RBC 4.50 (4.5-5.9) X10^6/uL Hgb 14.7 (13.5-17.5) g/dL Hct 43.1 (41-53) % MCV 95.8 (80-100) fL MCH 32.8 (26-34) PG MCHC 34.2 (30-36) % RDW 13.0 (11.6-14.8) % Plt Count 314 (150-400) X10^3/uL Neut % (Auto) 79.3 H (50-75) % Lymph % (Auto) 9.8 L (25-40) % [place] % (Auto) 9.3 (3-14) % Eos % (Auto) 0.9 L (2-4) % Baso % (Auto) 0.7 (0-2) % Neut # (Auto) 7000 (3893-8416) /uL Lymph # (Auto) 900 L (4699-7659) /uL [place] # (Auto) 800 (0-900) /uL Eos # (Auto) 100 (0-450) /uL Baso # (Auto) 100 (0-100) /uL PT 10.9 (10.1-12.7) SECONDS INR 1.0 (0.9-1.3) APTT 29 (26-36) SECONDS Sodium 135 L (137-145) mmol/L Potassium 3.9 (3.4-5.1) mmol/L Chloride 98 (98-107) mmol/L Carbon Dioxide 27 (22-32) mmol/L BUN 14 (9-20) mg/dL Creatinine 0.74 (0.66-1.25) mg/dL Estimated GFR > 60 (>60) mL/min BUN/Creatinine Ratio 18.9 (6-22) Glucose 102 (80-110) mg/dL Calcium 9.1 (8.4-10.2) mg/dL Magnesium 1.8 (1.6-2.3) mg/dL Total Bilirubin 0.9 (0.2-1.3) mg/dL AST 67 H (17-59) IU/L ALT 33 (<50) IU/L Alkaline Phosphatase 108 (38-126) U/L Total Creatine Kinase 565 H (55-170) U/L CK-MB (CK-2) 53.00 H (<2.37) ng/mL CK-MB (CK-2) Rel Index 9.4 H* (1.5-5.0) % Troponin I 1.910 H* (0.01-0.034) ng/mL NT-Pro-B Natriuret Pep (<125) pg/mL Total Protein 8.4 H (6.3-8.2) g/dL Albumin 4.3 (3.5-5.0) g/dL Globulin 4.1 (1.7-4.1) g/dL Albumin/Globulin Ratio 1.0 (1.0-2.8) Lipase 16 L (23-300) U/L SARS-CoV-2 (PCR) (Negative) 09/27/22 09/27/22 09/27/22 Range/Units 14:24 16:00 16:08 WBC (4.5-11.0) X10^3/uL RBC (4.5-5.9) X10^6/uL Hgb (13.5-17.5) g/dL Hct (41-53) % MCV (80-100) fL MCH (26-34) PG MCHC (30-36) % RDW (11.6-14.8) % Plt Count (150-400) X10^3/uL Neut % (Auto) (50-75) % Lymph % (Auto) (25-40) % [place] % (Auto) (3-14) % Eos % (Auto) (2-4) % Baso % (Auto) (0-2) % Neut # (Auto) (9321-7456) /uL Lymph # (Auto) (0432-2032) /uL [place] # (Auto) (0-900) /uL Eos # (Auto) (0-450) /uL Baso # (Auto) (0-100) /uL PT (10.1-12.7) SECONDS INR (0.9-1.3) APTT (26-36) SECONDS Sodium (137-145) mmol/L Potassium (3.4-5.1) mmol/L Chloride (98-107) mmol/L Carbon Dioxide (22-32) mmol/L BUN (9-20) mg/dL Creatinine (0.66-1.25) mg/dL Estimated GFR (>60) mL/min BUN/Creatinine Ratio (6-22) Glucose (80-110) mg/dL Calcium (8.4-10.2) mg/dL Magnesium (1.6-2.3) mg/dL Total Bilirubin (0.2-1.3) mg/dL AST (17-59) IU/L ALT (<50) IU/L Alkaline Phosphatase (38-126) U/L Total Creatine Kinase (55-170) U/L CK-MB (CK-2) (<2.37) ng/mL CK-MB (CK-2) Rel Index (1.5-5.0) % Troponin I 2.510 H* (0.01-0.034) ng/mL NT-Pro-B Natriuret Pep 435 H (<125) pg/mL Total Protein (6.3-8.2) g/dL Albumin (3.5-5.0) g/dL Globulin (1.7-4.1) g/dL Albumin/Globulin Ratio (1.0-2.8) Lipase (23-300) U/L SARS-CoV-2 (PCR) Positive H (Negative) Imaging Data Chest x-ray: Radiologist's Impression: FINDINGS:? ? Surgical changes and devices:? None.? ? Lungs and pleura:? Mild generalized interstitial prominence can be seen.? No pleural effusions or pneumothorax.? ? Mediastinum:? Mediastinal contours appear normal.? Heart size is normal.? Atherosclerotic calcification of the aortic arch is noted.? ? Bones and chest wall:? No suspicious bony lesions.? Overlying soft tissues appear unremarkable.? ? ? IMPRESSION:? Interstitial prominence is seen throughout. The interstitial prominence is nonspecific, yet may be related to pulmonary edema.? Please also consider atypical infection.? ? ? Dictated by: Ayo Arshad M.D. on 09/27/2022 at 12:58 ? ? ECG Data Interpretation: 1309 Sinus rhythm at a rate of 92 Normal intervals, normal axis No acute ST T wave changes 1436 Sinus rhythm at a rate of 64 Normal intervals, normal axis No acute ischemic changes No evolving changes from earlier MDM Narrative Medical decision making narrative: 71-year-old gentleman presents with chest pain prior history of IA. Due to volumes and ED capacity workup was initiated in the emergency department. Initial EKG does not suggest STEMI. Troponin returns at 2:20 this afternoon elevated at 1.91. With shifting of patient's about rooms, patient is brought back to room to with aspirin given, sublingual nitro as his pain is increasing, nitro drip, heparin is started an EKG is repeated. With a single sublingual nitro his pain went from a 6-7 to essentially 0. He is re-evaluated approximately 30 minutes later in his noticing the pain is beginning to reaccumulate. The single nitroglycerin did cause moderate hypotension so additional was not given. He was given a fluid bolus. At this point blood pressure is at 128/69. Replace half an inch of nitropaste. His 2nd troponin is due. Heparin is running. 525pm Dr Orozco, cardiology. Agrees with current plan including IV nitroglycerin. Will accept patient if beds are available. Next step would be to contact nursing supervisory historian. [phone] Nursing sup will contact hospitalist, Dr Vogt will be calling back. [phone] Dr. Vogt accepts care. Currently patient is on heparin drip nitro drip pain is controlled on the nitro drip. Everyone is aware of the COVID positive diagnosis. Pay Agent will call back with [facility] bed and nurse likely after 7:00 p.m. changes shift this evening. Discharge Plan Departure Patient Disposition: [facility] Clinical Impression: Unstable angina pectoris, Elevated troponin, COVID-19 Prescriptions: No Action lisinopril 20 mg tablet 20 mg PO DAILY clobetasol 0.05 % cream 1 applic Topical DIRECTED atorvastatin 40 mg tablet 40 mg PO DAILY hydrochlorothiazide 12.5 mg tablet 12.5 mg PO DAILY Referrals: Sudhir Diaz MD [Primary Care Provider] -
[2022-09-27 14:39] LABS: CKMB % Relative Index 9.4 % (1.5-5.0); Creatine Kinase 565 U/L (55-170)
[2022-09-27 14:53] LABS: NT-proBNP (BNP-Adult 18+) 435 pg/mL (<125)
[2022-09-27] MEDS: NITROGLYCERIN 0.4 MG SL TAB SL ×3 (14:58→17:21)
[2022-09-27] MEDS: HEPARIN 5,000 UNIT/ML VIAL 5000 UNIT IV (14:59)
[2022-09-27] MEDS: HEPARIN DRIP 25,000 UNIT/500 ML IV.SOLN 21.555 UNIT IV (15:00)
--- NOTE | 2022-09-27 15:05 | PC.NURSE ---
Heparin dose double checked with Antonia GOTTI.
--- NOTE | 2022-09-27 15:24 | PC.NURSE ---
Patient's pain in chest has decreased from 5/10 to 2/10 after first nitro. BP also dropped from 160systolic to 80systolic. He became nauseous, diaphoretic, and lightheaded. Doctor Trent aware and she order a fluid bolus of 1L NS. Will hold further doses of nitro at this time.
[2022-09-27] MEDS: SODIUM CHLORIDE 0.9% 1,000 ML 1000 ML IV (15:27)
[2022-09-27] MEDS: NITROGLYCERIN OINT 1 INCH/GM OINT...G. 0.5 INCH TOP (16:00)
[2022-09-27 16:26] LABS: COVID19 -Nasal RAPID POSITIVE (Negative)
--- NOTE | 2022-09-27 17:21 | PC.NURSE ---
1650 Patient reports chest pain has returned at 4/10. I spoke with Dr. Newman and she gave me the order to give the patient a second dose of 0.4mg SL Nitro since his BP is 180systolic and he has received now a full Liter of NS. He states he was probably dehydrated as he only drank coffee this morning. 1720 Patient tolerated second dose of nitro, states pain decreased to 2/10 and his blood pressure was minimally effected. Verbal order given by Dr. Newman to give 3rd dose of nitro and start him on nitro drip.
[2022-09-27] MEDS: NITROGLYCERIN 50 MG/250 ML INFUS..BTL IV (17:40)
--- NOTE | 2022-09-27 18:14 | PC.NURSE ---
Pts pain 2/10,increased ntg gtt 10mcg (3ml/hr)
--- NOTE | 2022-09-27 19:18 | PC.NURSE ---
Pain decreased to 1/10 with increase in nitro drip.
== END 2022-09-27 19:49 | disposition short-term general hospital (02) ==
PROVIDERS: Emergency Provider Emergency Medicine; PCP Family Medicine
DX: I20.0 Unstable angina (principal); R77.8 Other specified abnormalities of plasma proteins; U07.1 COVID-19; I25.2 Old myocardial infarction
CPT/HCPCS: 36415; 71045; 80053; 82550; 82553; 83690; 83735; 83880; 84484; 85025; 85610; 85730; 87635; 93005; 96365; 96366; 96368; 96375; 99284; 99285; C9803; J1644

== ENCOUNTER → 2024-04-25 11:09 | Outpatient (CLI) | payer MEDICARE, OTHER, SELFPAY ==
--- NOTE | 2024-04-25 | DI.US.S_ITS ---
PROCEDURE: US AORTA LIMITED INDICATIONS: Infrarenal abdominal aortic aneurysm TECHNIQUE: Real time scanning was performed of the aorta and iliac arteries, with image documentation. COMPARISON: [facility], , CT ANGIO RUNOFF ABD START, 11/21/2022, 8:58. FINDINGS: Aorta: Proximal aortic diameter measures 2.4 cm. Mid-aorta measures 2.5 cm. Distal aortic diameter 4.5 cm. (Previously 4 cm). 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 Iliac arteries: Right common iliac artery measures 1.7 cm. Left common iliac artery measures 1.7 cm. IMPRESSION: Infra-abdominal aortic aneurysm measuring approximately 4.5 cm. Appears increased. Consider CT angiogram for further evaluation. Dictated by: Danny Ochoa M.D. on 04/25/2024 at 18:18 Approved by: Danny Ochoa M.D. on 04/25/2024 at 18:22
[2024-04-25 13:49] LABS: Alanine Aminotransferase 24 IU/L (<50); Albumin 3.8 g/dL (3.5-5.0); Albumin Globulin Ratio 1.2 (1.0-2.8); Alkaline Phosphatase 100 U/L (38-126); Aspartate Aminotransferase 27 IU/L (17-59); BUN Creatinine Ratio 21.6 (6-22); Bilirubin Total 0.7 mg/dL (0.2-1.3); Blood Urea Nitrogen 19 mg/dL (9-20); Calcium 8.9 mg/dL (8.4-10.2); Carbon Dioxide 27 mmol/L (22-32); Chloride 107 mmol/L (98-107); Cholesterol 200 mg/dL (140-199); Estimated Glomerular Filt Rate > 60 mL/min (>60); Globulin 3.3 g/dL (1.7-4.1); Glucose 109 mg/dL (80-110); HDL Cholesterol 39 mg/dL (40-60); HEMOLYSIS < 15 (0-50); LDL Cholesterol Calculated 146 mg/dL (<100); Potassium 4.4 mmol/L (3.4-5.1); Sodium 138 mmol/L (137-145); Total Protein 7.1 g/dL (6.3-8.2); Triglycerides 73 mg/dL (35-150); VLDL Cholesterol Calculated 15 mg/dL (2-30)
[2024-04-28 02:08] LABS: Lipoprotein (a) 33.2 nmol/L (<75.0)
== END ==
LOC: US 11:11
PROVIDERS: Referring Provider Nurse Practitioner; Visit Provider Nurse Practitioner
DX: I71.43 Infrarenal abdominal aortic aneurysm, without rupture (principal); I25.10 Atherosclerotic heart disease of native coronary artery without angina pectoris; E78.5 Hyperlipidemia, unspecified; I10 Essential (primary) hypertension
CPT/HCPCS: 36415; 80053; 80061; 83695; 93979

== ENCOUNTER → 2024-10-06 12:07 | Outpatient (CLI) | payer MEDICARE, OTHER, SELFPAY ==
[2024-10-06 13:01] LABS: Blood Urea Nitrogen 21 mg/dL (9-20); Calcium 9.5 mg/dL (8.4-10.2); Carbon Dioxide 28 mmol/L (22-32); Chloride 105 mmol/L (98-107); Estimated Glomerular Filt Rate > 60 mL/min (>60); Glucose 127 mg/dL (80-110); HEMOLYSIS < 15 (0-50); Potassium 4.4 mmol/L (3.4-5.1); Sodium 138 mmol/L (137-145)
== END ==
LOC: LAB 12:10
PROVIDERS: Referring Provider Nurse Practitioner; Visit Provider Nurse Practitioner
DX: I21.4 Non-ST elevation (NSTEMI) myocardial infarction (principal); I25.10 Atherosclerotic heart disease of native coronary artery without angina pectoris; I71.43 Infrarenal abdominal aortic aneurysm, without rupture
CPT/HCPCS: 36415; 80048